=== PATIENT | female | born 1970 | race Caucasian/White ===

== ENCOUNTER 2017-04-30 11:36 | Emergency (ER) | payer MEDICAID ==
[~2017-04-30] VITALS: Ht 157.5 cm; Wt 59.5 kg
[~2017-04-30 11:36] MED LIST: MECL12.574 PO; ONDA4TAB14 PO
[2017-04-30 12:07] VITALS: Ht 157.5 cm; Wt 59.5 kg
[2017-04-30] MEDS ORDERED: SOD CHLORIDE 0.9% 500 ML IV STA (12:58)
[2017-04-30] MEDS ORDERED: METOCLOPRAMIDE 10 MG INJ IV STA (12:58)
[2017-04-30] MEDS ORDERED: DIPHENHYDRAMINE 50 MG INJ IV STA (12:58)
[2017-04-30] MEDS ORDERED: DEXAMETHASONE 10 MG/ML 1 ML INJ IV ONE (13:00)
[2017-04-30 13:15] LABS: BASOPHILS % 0.4 % (0.0-2.0); EOSINOPHILS # 0.1 10^3/ul (0.0-0.5); EOSINOPHILS % 1.2 % (0.0-7.0); HEMATOCRIT 42.9 % (37.0-47.0); HEMOGLOBIN 14.3 g/dl (12.0-16.0); LYMPHOCYTES # 1.9 10^3/ul (0.8-2.9); LYMPHOCYTES % 25.3 % (15.0-51.0); MEAN CORPUSCULAR HEMOGLOBIN 29.7 pg (29.0-33.0); MEAN CORPUSCULAR HGB CONC 33.3 g/dl (32.0-37.0); MEAN PLATELET VOLUME 10.4 fl (7.4-10.4); MONOCYTE # 0.4 10^3/ul (0.3-0.9); MONOCYTES % 5.2 % (0.0-11.0); NEUTROPHILS % 67.6 % (39.0-77.0); PLATELET COUNT 204 10^3/UL (140-415); RED BLOOD COUNT 4.82 10^6/ul (4.20-5.40); RED CELL DISTRIBUTION WIDTH 12.9 % (11.5-14.5); WHITE BLOOD COUNT 7.3 10^3/ul (4.8-10.8)
[2017-04-30 13:31] LABS: INR 0.99; PROTIME 13.1 Sec (12.2-14.2)
[2017-04-30 13:32] LABS: PARTIAL THROMBOPLASTIN TIME 26.2 Sec (25.0-35.0)
[2017-04-30 13:34] LABS: CALCIUM 9.6 mg/dl (8.4-10.2); CREATININE 0.56 mg/dl (0.44-1.00); POTASSIUM 3.6 mmol/L (3.5-5.1)
--- NOTE | 2017-04-30 13:54 | RADRPT ---
PROCEDURE: CT Brain without. CLINICAL INDICATION: Headache. TECHNIQUE: A CT of the brain was performed on multidetector high-resolution CT scanner utilizing a xial sections from the skull base through the vertex without contrast. The scan was reviewed in sof t tissue brain and high frequency resolution bone algorithm windows. Images were reviewed on a high -resolution PACS workstation. One or more the following does reduction techniques were utilized: Aut omated exposure control, adjustment of the mA/ or kV according to patient's size, or use of iterativ e reconstruction technique. The exam CTDI = 45.01 mGy and the DLP = 16 30.2 mGy-cm. COMPARISON: None available. FINDINGS: The ventricles and sulci are age-appropriate. There is no intracranial hemorrhage, mass effect or mi dline shift. No abnormal intra-axial or extra-axial fluid collections are seen. The dugan/white casie er differentiation is preserved. No acute skull abnormality is noted. The visualized paranasal sinus es are essentially clear. IMPRESSION: 1. No acute intracranial hemorrhage, transcortical infarction or mass effect. RPTAT: HFN .Katharina Winslow MD, MD Date Time Electronically viewed and signed by .Katharina Winslow MD, MD on 04/30/2017 13:54 .N/
--- NOTE | 2017-04-30 14:02 | ERD ---
ER Documentation Chief Complaint Date/Time DATE: 04/30/17 TIME: 13:57 Chief Complaint NUMBNESS TO TOUNGE AND BILAT UPPER/LEGS SINCE THIS AM. SPEECH CLEAR A&OX4 HPI This is a 46-year-old female who presents to the emergency room for evaluation of a headache, and some numbness and tingling around her mouth. The patient states that she has had these symptoms since she woke up this morning. The patient states that she does periodically get headaches and this does feel similar to previous headaches. She states that she had some numbness around her mouth and she came to the ER for evaluation of the. She denies taking any medication for headaches and denies any slurred speech or chest pain or shortness of breath associated with this. She denies neck pain, fever, or blurred vision and denies any sick contacts. The patient states that light does make her headache worse and nothing is improved so far. ROS All systems reviewed and are negative except as per history of present illness. Medications Home Meds Active Scripts Meclizine Hcl* (Antivert*) 12.5 Mg Tab, 12.5 MG PO Q6H Y for DIZZINESS, #20 TAB Prov:MAMTA POOLE MD 07/13/16 Ondansetron (Ondansetron Odt) 4 Mg Tab.rapdis, 4 MG PO Q6H Y for NAUSEA AND/OR VOMITING, #30 TAB Prov:MAMTA POOLE MD 07/13/16 Allergies Allergies: Coded Allergies: No Known Allergy (Unverified , 07/13/16) PMhx/Soc Medical and Surgical Hx: pt denies Surgical Hx History of Surgery: Yes (TUMOR REMOVAL CERVIX) Hx Alcohol Use: No Hx Substance Use: No Hx Tobacco Use: Yes Smoking Status: Never smoker Physical Exam Vitals Vital Signs Date Time Temp Pulse Resp B/P Pulse Ox O2 Delivery O2 Flow Rate FiO2 04/30/17 12:07 98.0 66 18 194/96 100 Physical Exam INITIAL VITAL SIGNS: Reviewed by me GENERAL: The patient is well developed and appropriate for usual state of health in no apparent distress HEENT: pupils equal, round, and reactive to light. EOMI. There is no scleral icterus. NECK: Negative Kernig's, negative BrudzinskiC-spine is soft and supple, there is no meningismus. There is no cervical lymphadenopathy. LUNGS: Clear to auscultation bilaterally. There are no rales, wheezes or rhonchi. HEART: Regular rate and rhythm, no murmurs, clicks, rubs or gallops. ABDOMEN: Soft, non-tender, non-distended. There are bowel sounds in all four quadrants. No rebound or guarding. EXTREMITIES: There is no peripheral cyanosis or edema. No focal swelling or erythema. NEUROLOGICAL: The patient moves all four extremities with 5/5 strength. Cranial nerves II - XII are intact. Normal gait. Alert and oriented To person place and time with no focal neurological deficits SKIN: There is no apparent rash or petechiae. HEME/LYMPHATIC: There is no evidence of excessive bruising or lymphedema. PSYCHIATRIC: The patient does not appear anxious or depressed. Result Diagram: 04/30/17 1300 04/30/17 1300 Results 24 hrs Laboratory Tests Test 04/30/17 13:00 White Blood Count 7.310^3/ul Red Blood Count 4.8210^6/ul Hemoglobin 14.3g/dl Hematocrit 42.9% Mean Corpuscular Volume 89.0fl Mean Corpuscular Hemoglobin 29.7pg Mean Corpuscular Hemoglobin Concent 33.3g/dl Red Cell Distribution Width 12.9% Platelet Count 78327^3/UL Mean Platelet Volume 10.4fl Neutrophils % 67.6% Lymphocytes % 25.3% Monocytes % 5.2% Eosinophils % 1.2% Basophils % 0.4% Nucleated Red Blood Cells % 0.0/100WBC Neutrophils # (Manual) 5.010^3/ul Lymphocytes # 1.910^3/ul Monocytes # 0.410^3/ul Eosinophils # 0.110^3/ul Basophils # 0.010^3/ul Nucleated Red Blood Cells # 0.010^3/ul Prothrombin Time 13.1Sec Prothrombin Time Ratio 1.0 INR International Normalized Ratio 0.99 Activated Partial Thromboplast Time 26.2Sec Sodium Level 141mmol/L Potassium Level 3.6mmol/L Chloride Level 104mmol/L Carbon Dioxide Level 27mmol/L Anion Gap 14 Blood Urea Nitrogen 12mg/dl Creatinine 0.56mg/dl Glucose Level 96mg/dl Calcium Level 9.6mg/dl Current Medications Medications (Trade) Dose Ordered Sig/Ivy Route PRN Reason Start Time Stop Time Status Last Admin Dose Admin Sodium Chloride (NS) 500 ml @ 500 mls/hr Q1H STAT IV 04/30/17 12:58 04/30/17 13:57 04/30/17 13:32 Metoclopramide HCl (Reglan) 10 mg ONCE STAT IV 04/30/17 12:58 04/30/17 12:59 DC 04/30/17 13:33 Diphenhydramine HCl (Benadryl) 25 mg ONCE STAT IV 04/30/17 12:58 04/30/17 12:59 DC 04/30/17 13:33 Dexamethasone (Decadron) 10 mg ONCE ONCE IV 04/30/17 13:00 04/30/17 13:01 DC 04/30/17 13:33 Procedures/MDM CT brain without: No stroke no bleedThis 46-year-old female presents to the emergency room for evaluation of headache, and perioral paresthesias. When I evaluated this patient she had no focal neurological deficits. The patient does have signs and symptoms consistent with complex migraine. CT of the brain was obtained and was negative and lab work does not reveal any leukocytosis. The patient has no meningeal signs, negative Kernig and Brudzinski. The patient was given a migraine cocktail in the emergency room of Benadryl, Reglan , and Decadron. When I reevaluated this patient the patient states that she is feeling better at this time. The patient will be discharged home with a prescription for Fioricet and instructions to return to the ER at any point if she feels uncomfortable at home of her headache returns. The patient verbalizes understanding and is okay to plan of care. My suspicion for stroke is low at this time as this patient has perioral paresthesias, and they have almost completely resolved after treatment with migraine cocktail. She has no focal neurological deficits Departure Diagnosis: Primary Impression: Migraine Additional Impression: Numbness Condition: Stable MARJORIE RAZA DO Apr 30, 2017 14:02
[2017-04-30] MEDS ORDERED: FIORICET PO (14:03)
[2017-04-30 14:10] VITALS: BP 138/70; PULSE 58; RESP 14
== END 2017-04-30 14:14 | disposition home or self-care (01) ==
LOC: E/R 11:36
DX: G43.909 Migraine, unspecified, not intractable, without status migrainosus (principal); R40.2142 Coma scale, eyes open, spontaneous, at arrival to emergency department; R40.2252 Coma scale, best verbal response, oriented, at arrival to emergency department; R40.2362 Coma scale, best motor response, obeys commands, at arrival to emergency department; Z87.891 Personal history of nicotine dependence
CPT/HCPCS: 36415; 70450; 80048; 85025; 85610; 85730; 96374; 96375; J1100; J1200; J2765; J7040; Z7502